=== PATIENT | male | born 1970 | race Caucasian/White ===

== ENCOUNTER 2023-12-04 20:03 | Emergency (ER) | payer OTHER ==
[~2023-12-04] VITALS: Ht 182.9 cm; Wt 99.8 kg
[2023-12-04 20:57] LABS: BASOPHILS # (AUTO) 0.08 K/uL (0.00-0.20); BASOPHILS % (AUTO) 1.5 % (0.0-5.0); EOSINOPHILS # (AUTO) 0.16 K/uL (0.00-0.70); HEMATOCRIT 47.7 % (42-54); IMMATURE GRANULOCYTE ABSOLUTE 0.01 K/uL (0-1); LYMPHOCYTES # (AUTO) 2.1 K/uL (1.0-4.8); LYMPHOCYTES % (AUTO) 40.4 % (21.0-51.0); MEAN CORPUSCULAR HEMOGLOBIN 28.7 pg (27.0-33.0); MEAN CORPUSCULAR HGB CONC 32.7 g/dL (32.0-36.0); MEAN CORPUSCULAR VOLUME 87.7 fL (79-99); MONOCYTES # (AUTO) 0.6 K/uL (0.1-1.0); MONOCYTES % (AUTO) 11.8 % (3.0-13.0); NEUTROPHILS # (AUTO) 2.3 K/uL (1.8-7.7); NEUTROPHILS % (AUTO) 43.1 % (40.0-77.0); PLATELET COUNT (AUTO) 239 K/uL (130-400); RED BLOOD CELL COUNT(AUTO) 5.44 MIL/uL (4.50-6.20); RED CELL DISTRIBUTION WIDTH 13.2 % (11.0-15.5); WHITE BLOOD COUNT (AUTO) 5.3 K/uL (4.8-10.8)
[2023-12-04 21:09] LABS: INR 0.94 (0.85-1.15); PROTHROMBIN TIME 10.2 SEC (9.6-11.6)
[2023-12-04 21:10] LABS: PARTIAL THROMBOPLASTIN TIME 23.9 SEC (26.3-35.5)
[2023-12-04 21:11] LABS: CREATININE 1.5 mg/dL (0.5-1.3); POTASSIUM 4.7 mmol/L (3.5-5.1)
[2023-12-04] MEDS ORDERED: IOHEXOL-350 75 ML VIAL IV ONE (22:00)
[2023-12-05 00:02] VITALS: BP 142/93; PULSE 58; RESP 16; TEMP 98.3; O2SAT 98
== END 2023-12-05 00:10 | disposition home or self-care (01) ==
LOC: EDH 20:03
DX: R07.89 Other chest pain (principal); R00.1 Bradycardia, unspecified; R79.1 Abnormal coagulation profile; M25.512 Pain in left shoulder; M54.6 Pain in thoracic spine; E11.9 Type 2 diabetes mellitus without complications
CPT/HCPCS: 99285; 71270; 71045; 84484; 80048; 85025; 85378; 85610; 85730; 36415; 93005; Q9967

== ENCOUNTER → 2023-12-04 | Outpatient (CLI) | payer OTHER ==
[2023-12-04 16:47] LABS: ALBUMIN 3.6 g/dL (3.5-5.0); BILIRUBIN,TOTAL 0.6 mg/dL (0.2-1.0); CREATININE 1.4 mg/dL (0.5-1.3); POTASSIUM 3.8 mmol/L (3.5-5.1); THYROID STIMULATING HORMONE 1.93 uIU/mL (0.36-3.74); TOTAL PROTEIN, SERUM 6.9 g/dL (6.0-8.3)
== END | disposition home or self-care (01) ==
LOC: LAB 13:52
PROVIDERS: ATTEND Internal Medicine Cardiovascular Disease
DX: I20.9 Angina pectoris, unspecified (principal); R00.2 Palpitations
CPT/HCPCS: 36415; 80053; 80061; 84443; 84484; 85378

== ENCOUNTER → 2023-12-16 | Outpatient (CLI) | payer OTHER | END | disposition home or self-care (01) | LOC: EDUNIT# 11:30 → SHCH 11:30 | PROVIDERS: ATTEND Internal Medicine Cardiovascular Disease | DX: R00.2 Palpitations (principal) | CPT/HCPCS: 93306; 93356 ==

== ENCOUNTER → 2023-12-22 | Outpatient (CLI) | payer OTHER ==
--- NOTE | 2023-12-24 07:17 | HMCSR ---
APPROVED REPORT Bilateral Lower Extremity Venous Study for DVT., Venous Competence.Study performed with patient in up right position or in reverse Trendelenburg. Vein Imaging CFV (R): Normal flow, augmentation and compression. No evidence of DVT, Diameter 16.7mm SFJ (R): Normal flow, augmentation and compression. No evidence of DVT. FEM (R): Normal flow, augmentation and compression. No evidence of DVT, 333 ms of DVR. POP (R): Normal flow, augmentation and compression. No evidence of DVT, 239 ms of DVR. DFV (R): Normal flow, augmentation and compression. No evidence of DVT. PTV (R): Normal flow, augmentation and compression. No evidence of DVT. Peroneals (R): Normal flow, augmentation and compression. No evidence of DVT. GAS (R): Normal flow, augmentation and compression. No evidence of DVT. CFV (L): Normal flow, augmen tation and compression. No evidence of DVT, Diameter 18.0 mm, 417 ms of DVR. SFJ (L): Normal flow, augmentation and compression. No evidence of DVT. FEM (L): Normal flow, augmentation and compression. No evidence of DV, 906 ms of DVR. POP (L): Normal flow, augmentation and compression. No evidence of DVT. DFV (L): Normal flow, augmentation and compression. No evidence of DVT. PTV (L): Normal flow, augmentation and compression. No evidence of DVT. Peroneals (L): Normal flow, augmentation and compression. No evidence of DVT. GAS (L): Normal flow, augmentation and compression. No evidence of DVT. Technologist Impression The deep veins of the bilateral lower extremities appear patent and compressible without evidence of thrombus. Deep venous reflux noted. There is evidence of significant superficial venous insufficiency in the bilateral greater saphenous veins and the left smaller saphenous vein. RGSV Junction 8.2 mm 722 ms Mid thigh 5.3 mm 0 ms Knee 5.4 mm 389 ms Mid- calf 2.7 mm 411 ms RSSV Prox 3.4 mm 0 ms Mid 2.7 mm 0 ms LGSV Junction 6.5 mm 483 ms Mid thigh 5.3 mm 344 ms Knee 4.4 mm 600 ms Mid-calf 2.8 mm 0 ms LSSV Prox 5.5 mm 0 ms Mid 2.8 mm 850 ms Conclusion Deep venous reflux noted. There is evidence of significant superficial venous insufficiency in the bilateral greater saphenous veins and the left smaller saphenous vein. Consider formal venography with IVUS if clinically indicated Conclusion Deep venous reflux noted. There is evidence of significant superficial venous insufficiency in the bilateral greater saphenous veins and the left smaller saphenous vein. Consider formal venography with IVUS if clinically indicated
== END | disposition home or self-care (01) ==
LOC: SHCH 14:19
PROVIDERS: ATTEND Internal Medicine Cardiovascular Disease
DX: I87.2 Venous insufficiency (chronic) (peripheral) (principal)
CPT/HCPCS: 93970

== ENCOUNTER → 2023-12-30 | Outpatient (CLI) | payer OTHER ==
[~2023-12-30] MED LIST: IOHEXOL 350 MG/ML 100ML INFUS..BTL IV ONE; IOHEXOL-350 50ML VIAL IV ONE
--- NOTE | 2023-12-30 16:23 | HMCIMG ---
CT CARDIAC ANGIO W/CONT. CCTA HISTORY: Chest pain COMPARISON: None TECHNIQUE: Multiple sequential axial images of the chest were obtained along with the CT angiogram of the chest study. Patient was given 100 cc of Omnipaque through intravenous route. FINDINGS: There is no evidence of pulmonary nodule or parenchymal disease. No pleural effusion or pericardial effusion is seen. There is no evidence of pneumothorax. There are normal size mediastinal and hilar lymph nodes. The heart is not enlarged. Degenerative changes of the thoracolumbar spine are present. IMPRESSION: 1. No evidence of pulmonary nodule or effusion is seen. Please see CT angiogram report of coronary arteries.
--- NOTE | 2024-01-04 11:34 | CARDIOLOGY ---
RAD REPORT: CORNARY CT ANGIO RADIOLOGY REPORT: CORONARY CT ANGIOGRAPHY DATE: Jan 04, 2024 QUALITY: Excellent CLINICAL HISTORY AND INDICATION: [chest pain ] TECHNIQUE: After obtaining a preliminary job analysis manager image, contrast imaging performed on an [employer] [id number] scanner. A dedicated, limited window, coronary imaging protocol was used, with single breath-hold, retrospective ECG gating, and automated arrhythmia rejection. 100 cc of low osmolar contrast agent: Omnipaque 350 was delivered via a 18-gauge IV catheter in the right antecubital fossa, using a power injector and followed by 60 cc of normal saline bolus as a chaser. Collimated images were reformatted at 0.5 mm intervals, and sent to an offline independent workstation for interpretation, using 3D anatomic reconstructions: Curved multiplanar reconstructions, maximum intensity projections, and multiplanar imaging. No metoprolol was administered prior to scanning due to low baseline heart rate. 0.8 mg SL nitroglycerin was given. CORONARY ARTERY DESCRIPTIONS: The coronary arteries arise in normal position. Left main coronary artery: Normal caliber vessel that bifurcates into the LAD and LCx. No stenosis. Left anterior descending coronary artery: Normal caliber vessel and gives rise to diagonal and septal branches. High risk plaque (HRP) with positive remodeling and spotty calcification in the proximal LAD with 40% stenosis extending into the mid LAD just distal to D1. Left circumflex coronary artery: Normal caliber, nondominant and gives rise to a large OM branch. No stenosis. Right coronary artery: Large, dominant vessel giving rise to the PL and PDA branches. No stenosis. CAD-RADs: 3, moderate stenosis. HRP, recommend aggressive LDL lowering therapy. Thoracic Aorta: Normal diameter. Jacqui Garrido MD Cardiovascular Disease [facility] JACQUI GARRIDO MD Jan 04, 2024 11:34
== END | disposition home or self-care (01) ==
LOC: RAH 08:48 → EDUNIT# 01-07 11:00
PROVIDERS: ATTEND Internal Medicine Cardiovascular Disease
DX: I25.119 Atherosclerotic heart disease of native coronary artery with unspecified angina pectoris (principal); M47.815 Spondylosis without myelopathy or radiculopathy, thoracolumbar region; R07.9 Chest pain, unspecified
CPT/HCPCS: 75574; Q9967 ×2

== ENCOUNTER 2024-01-27 01:15 | Observation (INO) | payer OTHER ==
[2024-01-27 01:38] LABS: BASOPHILS # (AUTO) 0.05 K/uL (0.00-0.20); BASOPHILS % (AUTO) 0.8 % (0.0-5.0); EOSINOPHILS # (AUTO) 0.15 K/uL (0.00-0.70); EOSINOPHILS % (AUTO) 2.5 % (0.0-8.0); IMMATURE GRANULOCYTE ABSOLUTE 0.02 K/uL (0-1); LYMPHOCYTES % (AUTO) 49.2 % (21.0-51.0); MEAN CORPUSCULAR HEMOGLOBIN 28.7 pg (27.0-33.0); MEAN CORPUSCULAR HGB CONC 32.8 g/dL (32.0-36.0); MEAN CORPUSCULAR VOLUME 87.5 fL (79-99); MONOCYTES # (AUTO) 0.6 K/uL (0.1-1.0); MONOCYTES % (AUTO) 10.5 % (3.0-13.0); NEUTROPHILS # (AUTO) 2.2 K/uL (1.8-7.7); NEUTROPHILS % (AUTO) 36.7 % (40.0-77.0); PLATELET COUNT (AUTO) 227 K/uL (130-400); RED BLOOD CELL COUNT(AUTO) 5.37 MIL/uL (4.50-6.20); RED CELL DISTRIBUTION WIDTH 12.7 % (11.0-15.5)
[2024-01-27 01:46] LABS: AMPHET/METH SCREEN,URINE NEGATIVE (NEGATIVE); BARBITURATE SCREEN, URINE NEGATIVE (NEGATIVE); BENZODIAZEPINES SCREEN,URINE NEGATIVE (NEGATIVE); CANNABINOID SCREEN,URINE NEGATIVE (NEGATIVE); COCAINE SCREEN,URINE NEGATIVE (NEGATIVE); OPIATE SCREEN,URINE NEGATIVE (NEGATIVE); PHENCYCLIDINE SCREEN,URINE NEGATIVE (NEGATIVE)
[2024-01-27 01:47] LABS: CARBON DIOXIDE 31 mmol/L (21-32); CHLORIDE 110 mmol/L (101-111); CREATININE 1.3 mg/dL (0.5-1.3); GLOMERULAR FILTR. RATE CALC 66 mL/min (>90); GLUCOSE,RANDOM 92 mg/dL (70-105); POTASSIUM 3.9 mmol/L (3.5-5.1); SODIUM SERUM 146 mmol/L (136-145); UREA NITROGEN, BLOOD 19 mg/dL (7-18)
[2024-01-27 01:54] LABS: CREATINE KINASE, TOTAL 122 U/L (21-232)
[2024-01-27 01:55] LABS: ALCOHOL, BLOOD < 3 mg/dL (0-10)
[2024-01-27 01:58] LABS: B-TYPE NATRIURETIC PEPTIDE 7 pg/mL (0-100)
[2024-01-27] MEDS: 0.9%NACL 1000ML 1,000 ML IV ONE (02:53)
--- NOTE | 2024-01-27 04:13 | ERN ---
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 Chief Complaint: Palpitations Time Seen by MD: 01:28 Dictation: This is a 53-year-old male who presented to the emergency room with complaints of severe palpitations 2 hours prior to presentation to the ER and chest discomfort. He stated that he was about to go to sleep when he felt like his heart was pumping so hard that he could hear the beats or feel them in the neck suprasternal notch underneath the ribcage. He could not sleep as this was going on constantly and he was concerned about probably having a heart attack and hence he came in. No diaphoresis syncopal episode. He had somewhat of a similar episode in November 30, 2023 at which time he was admitted and an echocardiogram and cardiac evaluation was done. His D-dimer is were apparently elevated and he had a CT scan of the chest with a PE protocol that was essentia lly negative he was noted to be bradycardic in November. No history of any thyroid problems. He does drink coffee but no other stimulants. Denied alcohol recreational drugs. Temperature 98.4 pulse 95 respirations 20 blood pressure 142/102 pulse oximetry 96% on room air He has a history of gout Allergies: Coded Allergies: No Known Allergies (Unverified Allergy, Unknown, 12/04/23) Past Medical History Past Medical History: No Pertinent History Additional Past Medical Hx: Gout Surgical History: Tonsillectomy Family History: Negative Social History: Negative RN Note Reviewed/Agreed w/PFSH: Yes Review of System Dictation Constitutional: Negative for fever,chills, and weight loss Eyes: Negative for injury, pain,redness, and discharge ENT: Negative for injury,pain or swelling Cardiovascular: Positive chest pain, palpitations, and no edema Respiratory: Negative for shortness of breath, cough, and wheezing, Abdomen/GI: Negative for abdominal pain, nausea, vomiting, diarrhea, and constipation Back: Negative for injury and pain : Negative for injury, bleeding and discharge MS/Extremity: Negative for injury and deformity Skin: Negative for rash, and discoloration Neuro: Negative for headache, weakness, numbness, tingling, and seizure Psych: Negative for suicide ideation, homicidal ideation, and hallucinations Initial Vital Sign VS Vital Signs Date Time Temp Pulse Resp B/P (MAP) Pulse Ox O2 Delivery O2 Flow Rate FiO2 01/27/24 01:21 98.4 95 20 142/102 96 Room Air 01/27/24 01:38 0 21 Physical Exam Dictation General: awake, alert, NAD Head/Face: Normocephalic, atraumatic Eyes: PERRL, EOMI, vision at baseline ENT: oral cavity clear, TMs clear, no signs of infection Neck: Trachea midline, supple, no nuchal rigidity Cardiovascular: RRR, normal S1/S2, No MRGs, no JVD Respiratory: CTAB, no respiratory distress, No rales or wheezes Abdomen: Soft, non-tender, non-distended, normal bowel sounds, no guarding or rebound. Skin: Warm, dry, normal turgor, no rash MS/Extremity: Pulses equal, no cyanosis, neurovascular intact, FROM Neuro: COAx4, GCS 15, strength 5/5, CN 2-12 intact, normal cerebellar exam, normal gait, Psych: Normal behavior, mood, and affect normal Extremities-trace edema without any palpable cords, Homans sign is negative Results (Laboratory/Radiology) Laboratory/Radiology Laboratory Tests Test 01/27/24 01:30 White Blood Count 6.0 K/uL (4.8-10.8) Red Blood Count 5.37 MIL/uL (4.50-6.20) Hemoglobin 15.4 g/dL (14.0-18.0) Hematocrit 47.0 % (42-54) Mean Corpuscular Volume 87.5 fL (79-99) Mean Corpuscular Hemoglobin 28.7 pg (27.0-33.0) Mean Corpuscular Hemoglobin Concent 32.8 g/dL (32.0-36.0) Red Cell Distribution Width 12.7 % (11.0-15.5) Platelet Count 227 K/uL (130-400) Mean Platelet Volume 10.8 fL (7.5-10.5) H Immature Granulocyte % (Auto) 0.3 % (0-1) Neutrophils (%) (Auto) 36.7 % (40.0-77.0) L Lymphocytes (%) (Auto) 49.2 % (21.0-51.0) Monocytes (%) (Auto) 10.5 % (3.0-13.0) Eosinophils (%) (Auto) 2.5 % (0.0-8.0) Basophils (%) (Auto) 0.8 % (0.0-5.0) Neutrophils # (Auto) 2.2 K/uL (1.8-7.7) Lymphocytes # (Auto) 3.0 K/uL (1.0-4.8) Monocytes # (Auto) 0.6 K/uL (0.1-1.0) Eosinophils # (Auto) 0.15 K/uL (0.00-0.70) Basophils # (Auto) 0.05 K/uL (0.00-0.20) Absolute Immature Granulocyte (auto 0.02 K/uL (0-1) Nucleated Red Blood Cells 0.0 % (0.0-0.19) Sodium Level 146 mmol/L (136-145) H Potassium Level 3.9 mmol/L (3.5-5.1) Chloride Level 110 mmol/L (101-111) Carbon Dioxide Level 31 mmol/L (21-32) Blood Urea Nitrogen 19 mg/dL (7-18) H Creatinine 1.3 mg/dL (0.5-1.3) Glomerular Filtration Rate Calc 66 mL/min (>90) Random Glucose 92 mg/dL (70-105) Total Calcium 8.9 mg/dL (8.5-10.1) Total Creatine Kinase 122 U/L (21-232) Troponin I High Sensitivity 5.1 ng/L (4-75) B-Type Natriuretic Peptide 7 pg/mL (0-100) Thyroid Stimulating Hormone (TSH) 3.85 uIU/mL (0.36-3.74) #H Urine Opiates Screen NEGATIVE (NEGATIVE) Urine Barbiturates Screen NEGATIVE (NEGATIVE) Urine Phencyclidine Screen NEGATIVE (NEGATIVE) Urine Amphetamines Screen NEGATIVE (NEGATIVE) Urine Benzodiazepines Screen NEGATIVE (NEGATIVE) Urine Cocaine Screen NEGATIVE (NEGATIVE) Urine Marijuana (THC) Screen NEGATIVE (NEGATIVE) Serum Alcohol < 3 mg/dL (0-10) Labs Reviewed?: Yes ED Course ED Course Orders Procedure Category Date Status Time 12 Lead Ekg Tracing- EKG 01/27/24 Logged Technical 01:20 Alcohol, Blood LAB 01/27/24 Complete 01: Cardiac Panel LAB 01/27/24 Complete 01:31 Cbc With Differential LAB 01/27/24 Complete : Basic Metabolic Panel LAB 01/27/24 Complete 01: B-Type Natriuretic LAB 01/27/24 Complete Peptide 01:31 Drug Screen Urine LAB 01/27/24 Complete 01:31 Thyroid Stimulating LAB 01/27/24 Complete Hormone 02:04 0.9%Nacl 1000ml (Ns PHA 01/27/24 In Process 1000ml) 03:00 Alprazolam 0.5mg PHA 01/27/24 In Process (Xanax 0.5mg) 05:00 Edm Admit Bridge Order ADM 01/27/24 Verified 04:43 Admit Orders ADM 01/27/24 Verified 04:43 Current Medications Medications (Trade) Dose Ordered Sig/Daysi Route PRN Reason Start Time Stop Time Status Last Admin Dose Admin Alprazolam (XANax 0.5MG) 0.5 mg ONCE ONCE PO 01/27/24 05:00 01/27/24 05:01 Sodium Chloride 1,000 ml @ 125 mls/hr ONCE ONCE IV 01/27/24 03:00 01/27/24 10:59 01/27/24 02:53 Vital Signs Date Time Temp Pulse Resp B/P (MAP) Pulse Ox O2 Delivery O2 Flow Rate FiO2 01/27/24 01:38 98.2 75 18 116/65 99 Room Air* 0 21 01/27/24 01:21 98.4 95 20 142/102 96 Room Air We will perform diagnostic labs, advanced imaging and administer medications according to the patient's complaint. Once the results are available, will review and personally interpreted the labs to rule out any acute life- threatening emergency the trach require immediate intervention and treatment. I will then re-evaluate the patient after treatment and diagnostic exams have return to determine whether the patient requires any further testing, can safely be discharged home or need further admission to hospital for additional treatment and evaluation. Labs reviewed CBC within normal limits BNP 7 significant for hypernatremia sodium 146 chloride 110 bicarb 31 BUN and creatinine are 19 and 1.3 with a glucose of 92 TSH 3.8 urine tox screen negative I discussed extensively with the patient on available information unremarkable EKG for any acute event and he was extremely concerned about this hyperdynamic heart fluttering feeling. I explained to him that with a dehydration, we will pursue some fluids and consider admission for cardiac re-evaluation and perhaps considering either a loop recorder or whatever is deemed appropriate by cardiology team. He stated that he lives by himself and is very concerned about not knowing what the problem is in his very appreciative of all the workup and efforts. 4:51 a.m. patient was accepted by hospitalist group mid-level provider marco a for admission and further cardiac evaluation HEART Score Response (Comments) Value History: Low suspicion (0) 0 EKG: Normal 0 Age: 45-65yrs (+1) 1 Risk Factors: No known risk factors (0) 0 Initial Troponin: Normal limit (0) 0 HEART Score Risk: Low Risk for MACE (1-3) Total 1 Medical Decision Making MDM MDM: Differential diagnosis: Palpitations-hyperdynamic heart possibly arrhythmia, sick sinus syndrome, mitral valve prolapse Rationale: Tests considered and ordered secondary to shared decision making include: labs, ECG and radiology Previous outside records reviewed: Old ER visits. Risk of complication and/or morbidity or mortality of patient management: None Medications-Per medication reconciliation Need for hospitalization: Patient does meet criteria for hospitalization. Need for emergency major/minor surgery: No There are no social concerns with this patient. Prescription drug management Prescriptions will include symptomatic care Patient's prior external medical records from other ER visits were reviewed by me as indicated. Prior testing and results from previous visits were reviewed. Prior tests were taken into account with medical decision making and resource utilization, independent historian/historians were used to obtain complete medical history. I independently interpreted the test that were performed, results were reviewed by me and considered findings on radiology if ordered. Medical management and examination interpretation discussions were had by me with other qualified healthcare professionals as indicated for the patient's care. Problem List Problem List: (1) Hypernatremia (2) Acute kidney injury (3) Palpitations (4) Chest pain of unknown etiology DX & DISP Disposition: Inpatient Decision to Admit Time: 04:53 Departure Impression: Primary Impression: Palpitations Additional Impressions: Chest pain of unknown etiology, Hypernatremia, Acute kidney injury Condition: Stable Additional Instructions: Patient was informed of all the diagnostic labs and procedures conducted in the emergency room today and demonstrated understanding of the results. I personally reviewed and interpreted all the diagnostic exams performed in the ER today. The patient will be admitted to the hospital for further treatment and evaluation. Disposition-admit to facility Condition-stable/guarded Course-uncertain at this time Pain status-decreased Assessment-exam unchanged Admission Certification- I certify that the patients status is appropriate and is based on my best clinical judgment and the patient's condition as documented in the medical records Referrals: SELF,REFERRAL (PCP) GIUSEPPE DWYER MD Jan 27, 2024 04:13
[2024-01-27] MEDS: ALPRAZolam 0.5 MG TABLET PO ONE (05:00)
[2024-01-27] MEDS ORDERED: ALLO100T PO (05:13)
[2024-01-27] MEDS ORDERED: ATOR40TA69 PO (05:13)
[2024-01-27] MEDS: 0.9%NACL 1000ML 1,000 ML IV SCH (05:59)
--- NOTE | 2024-01-27 05:59 | HP ---
[facility] HISTORY AND PHYSICAL Date of Service: Jan 27, 2024 Time of Service: 05:12 PCP: YOLY varma HISTORY OF PRESENT ILLNESS: This is a 53 year old male with past medical history of hyperlipidemia who presents tot he ED ofr complaints of palpitation associated with chest discomfort onset 2 hrs prior to ER srrival.Patient reports he feels the palpitation while lying down ,he feels like his heart is about to jump out of his chest and the palpitation can be felt from his left side of neck up to his left chest and towards the left ribcage , he said he is unable to sleep because of this and this has been on going since . and he said he was seen here before and was noted to be bradycardic .Patient had an echocardiogram done and was referred to a still runner who checked him for PE and DVT and it was all negative he said but he is concerned how come he feels this way.Patient also states he feels dizzy on and off especially when he changes his position from lying down to getting out of bed.Patient reports he used to be in a and now he works as a computer technology trainer.He drinks 2 cups of dark coffee/daily.Patient denies any recent stress event in life.Patient states 2 days ago he had a midsternal chest pain and went away on its own.Patient states he is concerned that he is having a heart attack. Seen and examined patient in the ER awake,alert and coherent,continue to complain of palpitation.Patient denies nausea,vomiting ,syncope and shortness of breath. Latest vital signs temperature 98.1, heart rate 82, BP 122/62 and saturation 97% on room air. Labs: CBC unremarkable. Sodium 146, BUN 19, TSH 3.85, BNP 7. Urine toxicology negative. ECG result revealed sinus rhythm heart rate 75. While in the ER patient received Xanax 0.5 mg p.o. and started on NS at 125 mL/hour. ER called to admit the patient. REVIEW OF SYSTEMS CONSTITUTIONAL: Denies fevers, chills, or night sweats. No unintentional weight loss reported. NEUROLOGICAL: Denies headache, amaurosis fugax, motor weakness, sensory deficit, vertigo/spinning sensation, gait abnormalities, or tremors. ENT: No hearing loss, otalgia, otorrhea, rhinitis, rhinorrhea, hoarseness, or sore throat. CARDIOVASCULAR: Complained of palpitation and chest discomfort Denies dyspnea on exertion, orthopnea, paroxysmal nocturnal dyspnea, palpitations, life- threatening arrhythmias, claudication. PULMONARY: Denies any shortness of breath, cough, phlegm/sputum, hemoptysis, pleuritic chest pain. SLEEP: Denies morning headaches, daytime somnolence or napping. Denies difficulty falling asleep, staying asleep, waking from sleep. Denies knowledge of snoring. GASTROINTESTINAL: Denies any type of dysphagia to either liquids or solids. Denies nausea, vomiting, pyrosis, early satiety, abdominal pain, diarrhea, constipation, or changes in stool consistency or caliber. Denies coffee-ground emesis, hematemesis, hematochezia, or melanotic stools. GENITOURINARY: Denies frequency, urgency, nocturia, hematuria or incontinence (Storage/Irritative symptoms.) Low urinary stream, straining to void, urinary intermittency or hesitancy, splitting of the voiding stream, terminal dribbling. ENDOCRINOLOGIC: Denies polyuria, polydipsia, polyphagia or heat/cold intolerances. HEMATOLOGIC: Denies thrombophilia/previous clots, or coagulopathy/bleeding disorders. ONCOLOGIC: Denies personal history of malignancy. DERMATOLOGIC: Denies rashes or pruritus. PSYCHIATRIC: Denies any suicidal or homicidal ideation. Denies hallucinations. PAST MEDICAL HISTORY: [Hyperlipidemia ] PAST SURGICAL HISTORY: [ Tonsillectomy hernia repair, cyst removal of the right breast ] PAST SOCIAL HISTORY: [ Patient lives alone. Patient denies alcohol tobacco and recreational drug use] FAMILY HISTORY: [ Heart disease ] Coded Allergies: No Known Allergies (Unverified Allergy, Unknown, 12/04/23) PHYSICAL EXAM GENERAL APPEARANCE: The patient is awake, alert, and oriented, in no acute cardiopulmonary distress. NEUROLOGICAL: Cranial nerves II-XII grossly intact. Motor is 5/5 in bilateral upper and lower extremities proximal to distal. No sensory deficits. HEENT: Face is symmetric. Pupils are equal and reactive. Extraocular movements are intact. NECK: Supple. No JVD. No thyromegaly. No submental, submandibular, pre- /postauricular, occipital or supraclavicular lymphadenopathy. CHEST: Normal chest expansion. No Telemetry. LUNGS: Absence of any rales, rhonchi or any wheezing. CARDIOVASCULAR: Regular. S1 and S2 normal. No appreciable rubs, murmurs or gallops. ABDOMEN: Soft, nontender, and nondistended. There is no rebound, voluntary guarding, or rigidity. : Deferred. No Roque. EXTREMITIES: Non-edematous and not cyanotic. No clubbing. Good capillary refill. SKIN: No skin breakdown. Vital Sign (Last 24 Hours) 01/27/24 01:38 Temp 98.2 Pulse 75 Resp 18 B/P (MAP) 116/65 Pulse Ox 99 O2 Delivery Room Air* O2 Flow Rate 0 FiO2 21 LABS: Laboratory: Test 01/27/24 01:30 Range/Units White Blood Count 6.0 4.8-10.8 K/uL Red Blood Count 5.37 4.50-6.20 MIL/uL Hemoglobin 15.4 14.0-18.0 g/dL Hematocrit 47.0 42-54 % Mean Corpuscular Volume 87.5 79-99 fL Mean Corpuscular Hemoglobin 28.7 27.0-33.0 pg Mean Corpuscular Hemoglobin Concent 32.8 32.0-36.0 g/dL Red Cell Distribution Width 12.7 11.0-15.5 % Platelet Count 227 130-400 K/uL Mean Platelet Volume 10.8 H 7.5-10.5 fL Immature Granulocyte % (Auto) 0.3 0-1 % Neutrophils (%) (Auto) 36.7 L 40.0-77.0 % Lymphocytes (%) (Auto) 49.2 21.0-51.0 % Monocytes (%) (Auto) 10.5 3.0-13.0 % Eosinophils (%) (Auto) 2.5 0.0-8.0 % Basophils (%) (Auto) 0.8 0.0-5.0 % Neutrophils # (Auto) 2.2 1.8-7.7 K/uL Lymphocytes # (Auto) 3.0 1.0-4.8 K/uL Monocytes # (Auto) 0.6 0.1-1.0 K/uL Eosinophils # (Auto) 0.15 0.00-0.70 K/uL Basophils # (Auto) 0.05 0.00-0.20 K/uL Absolute Immature Granulocyte (auto 0.02 0-1 K/uL Nucleated Red Blood Cells 0.0 0.0-0.19 % Sodium Level 146 H 136-145 mmol/L Potassium Level 3.9 3.5-5.1 mmol/L Chloride Level 110 101-111 mmol/L Carbon Dioxide Level 31 21-32 mmol/L Blood Urea Nitrogen 19 H 7-18 mg/dL Creatinine 1.3 0.5-1.3 mg/dL Glomerular Filtration Rate Calc 66 >90 mL/min Random Glucose 92 70-105 mg/dL Total Calcium 8.9 8.5-10.1 mg/dL Total Creatine Kinase 122 21-232 U/L Troponin I High Sensitivity 5.1 4-75 ng/L B-Type Natriuretic Peptide 7 0-100 pg/mL Thyroid Stimulating Hormone (TSH) 3.85 #H 0.36-3.74 uIU/mL Urine Opiates Screen NEGATIVE NEGATIVE Urine Barbiturates Screen NEGATIVE NEGATIVE Urine Phencyclidine Screen NEGATIVE NEGATIVE Urine Amphetamines Screen NEGATIVE NEGATIVE Urine Benzodiazepines Screen NEGATIVE NEGATIVE Urine Cocaine Screen NEGATIVE NEGATIVE Urine Marijuana (THC) Screen NEGATIVE NEGATIVE Serum Alcohol < 3 0-10 mg/dL DIAGNOSTICS / RADIOLOGY: [ ASSESSMENT: Persistent palpitation POA Chest pain unspecified POA New onset hypothyroidism POA Hypernatremia POA Stage II renal disease POA PLAN: We will admit patient in medical telemetry We will start on heart healthy diet We will start NS @ 100 ml / hr x1 bag and re evaluate We will start patient on Lovenox 30 mg subQ and bilateral SCD for DVT prophylaxis We will start on Famotidine 20 mg bid for GI prophylaxis We will replace electrolytes as needed per protocol We will trend troponin q.6 x3 We will seek Cardiology consultation We will seek endocrinology consultation We will check labs in a.m. Further recommendations to follow depending upon hospitalization course Case discussed with the attending MD and came up with the above treatment and plan of care ADVANCED CARE PLANNING 1. Which of the following were discussed? Hospice Care - No Therapeutic options - Yes Advance Directives - No Other discussions - 2. Discussed with who? Patient 3. Voluntary nature of this service was explained to the patient? Yes 4. Amount of time spent - ___20____ 5. Reviewed by Physician? (if this service was performed by NPP) Yes Patient seen and examined by me. Agree with note by MANAGER NIGHT SEE ADDITIONAL ORDERS PER CHART DISCUSSED WITH NURSING STAFF ERINN DILL [facility] Jan 27, 2024 05:59
[2024-01-27] MEDS ORDERED: PoTASSium chl 10% ELIXIR 20MEQ 20 MEQ/15 ML UDCUP PO PRN (06:00)
[2024-01-27] MEDS ORDERED: ondanSETRON 4MG INJ IV PRN (06:00)
[2024-01-27] MEDS ORDERED: PoTASSium chloRIDE 20MEQ ER 20 MEQ ERTAB PO PRN (06:00)
[2024-01-27] MEDS ORDERED: MAGNESIUM 2GM PREMIX 50ML 50 ML IV PRN (06:00)
[2024-01-27] MEDS ORDERED: PoTASSium chloRIDE 20MEQ/100ML 100 ML IV PRN (06:00)
[2024-01-27] MEDS ORDERED: acetaMINOPHEN 325 MG TAB PO PRN ×2 (06:00)
--- NOTE | 2024-01-27 06:33 | EKG ---
[facility] Test Date: 2024-01-27 Test Time: 01:22:38 Pat Name: GRISELDA STEWARD Department: EDHIP Room: ED 09 Gender: M Technology Architect: [id number] : 1970 Requested By: GIUSEPPE DWYER Order Number: [id number] Reading MD: Flakito Kaba Measurements Intervals [place] Rate: 75 P: 52 SC: 189 QRS: -39 QRSD: 96 T: 39 QT: 373 QTc: 416 Interpretive Statements Sinus rhythm Left axis deviation Compared to ECG 12/04/2023 20:59:16 No significant changes Electronically Signed On 01-27-2024 20:54:37 GUEST EXPERIENCE REPRESENTATIVE by Flakito Kaba Please click the below link to view image of tracing.
[2024-01-27] MEDS: ENOXAPARIN SODIUM 30 MG/0.3 ML SQ SCH (08:41)
[2024-01-27] MEDS: FAMOTIDINE 20MG TAB PO SCH (08:41)
[2024-01-27 09:54] LABS: CHOLESTEROL 115 mg/dL (<200); HDL CHOLESTEROL 41 mg/dL (29-71); LDL DIRECT 65 mg/dL (0-99); TRIGLYCERIDES 88 mg/dL (30-200)
[2024-01-27] MEDS: ASPIRIN 81 MG EC TAB PO SCH (09:55)
--- NOTE | 2024-01-27 11:44 | HMCIMG ---
US CAROTID DUPLEX HISTORY: Dizziness COMPARISON: None TECHNIQUE: Duplex carotid arterial Doppler ultrasound study was performed. FINDINGS: The common, internal and external carotid arteries are visualized. The peak systolic velocities of right common carotid artery is 89 centimeters per second, right internal carotid artery is 60 centimeters per second, right external carotid artery is 95 centimeters per second, and right vertebral artery is 35 centimeters per second. Right internal carotid artery to right common carotid artery ratio is 0.7. Right vertebral artery is seen with antegrade flow. The peak systolic velocities of left common carotid artery is 83 centimeters per second, left internal carotid artery is 61 centimeters per second, left external carotid artery is 69 centimeters per second, and left vertebral artery is 57 centimeters per second. Left internal carotid artery to left common carotid artery ratio is 0.7. Left vertebral artery is seen with antegrade flow. There are bilateral echogenic plaques. IMPRESSION: 1. No hemodynamically significant lesion is seen of either extracranial carotid artery system.
--- NOTE | 2024-01-27 13:31 | CONS ---
[facility] CARDIOLOGY CONSULTATION REPORT Cardiology consultation note dictated for Jose Ram MD Primary civil process server: Adal Kelley MD Date Patient Seen: Jan 27, 2024 Requesting Physician: SAVITA Magaña Reason for Consultation: Persistent palpitations History of Present Illness: This is a 53-year-old male with a past medical history of palpitations, normal Lexiscan in 05/01/2022, 2D Echo on 12/16/2023 with an LVEF of 55-60% and normal LV segmental wall motion, CCTA on 01/04/2024 demonstrated high risk plaque (HRP) with positive remodeling and spotty calcification in the proximal LAD with 40% stenosis extending into the mid LAD just distal to D1, with recommendations for aggressive LDL lowering therapy, BLE venous Doppler on 12/22/2023 demonstrating venous insufficiency in the bilateral greater saphenous veins and the left smaller saphenous vein, gout, and obesity who presented to the ED with complaints of palpitations and chest discomfort. Cardiology have been consulted for persistent palpitations. The patient states he was in bed but could not sleep due to 2 hours of palpitations before he sought medical treatment. Over all, his palpitations lasted 3-5 hours. Associated symptoms include dizziness, diaphoresis, and shortness of breath. He does admit to approximately 2 cups of coffee 3 to 4 times a week and 2 cups of black tea daily. He currently denies chest pain, dizziness, shortness of breath, nausea, or vomiting. He does admit to current palpitations, but bedside telemetry demonstrates normal sinus rhythm with heart rate in the 60s, no premature atrial or ventricular beats noted. Holter report from 12/19/2023-12/21/2023 demonstrating NSR with an average heart rate of 75 bpm, minimum heart rate of 44bpm and maximum heart rate of 161bpm. There was no significant pause and no significant AV block documented. PAC burden of less than 1% and PVC burden of 0%. Normal bilateral carotid doppler on 01/27/2024. Past Medical History: As per HPI and summarized below Past Surgical History: Cyst removed from right breast Tonsillectomy Hernia repair at 2-week-old Family History: The patient's father had a heart valve replacement and hyperlipidemia. Social History: The patient lives alone. Habits: The patient denies alcohol, tobacco, or illicit drug use. Home Meds: Allopurinol 200 mg daily Atorvastatin 40 mg q.h.s. Current Meds: Current Medications Medications Dose Ordered Sig/Daysi Start Time Stop Time Status Last Admin Acetaminophen 650 mg Q6H PRN 01/27/24 06:00 02/26/24 05:59 Acetaminophen 650 mg Q4H PRN 01/27/24 06:00 02/26/24 05:59 Ondansetron HCl 4 mg Q6H PRN 01/27/24 06:00 02/26/24 05:59 Famotidine 20 mg BID 01/27/24 09:00 02/26/24 08:59 01/27/24 08:41 Enoxaparin Sodium 30 mg DAILY 01/27/24 09:00 02/26/24 08:59 01/27/24 08:41 Sodium Chloride 1,000 ml @ 100 mls/hr Q10H 01/27/24 06:00 02/26/24 05:59 01/27/24 05:59 Potassium Chloride 100 ml @ 100 mls/hr AD PRN 01/27/24 06:00 02/26/24 05:59 Potassium Chloride 20 meq AD PRN 01/27/24 06:00 02/26/24 05:59 Potassium Chloride 20 meq AD PRN 01/27/24 06:00 02/26/24 05:59 Magnesium Sulfate 50 ml @ 0 mls/hr PROTOCOL PRN 01/27/24 06:00 02/26/24 05:59 Aspirin 81 mg DAILY 01/27/24 09:30 02/26/24 09:29 01/27/24 09:55 Allopurinol 200 mg AM 01/28/24 09:00 02/27/24 08:59 Atorvastatin Calcium 40 mg HS 01/27/24 21:00 02/26/24 20:59 Review of Systems: CONST: No fever, fatigue, or weight changes. EYES: No recent vision problems. ENT: No congestion, ear pain, or sore throat. C/V: No chest pain or edema. Admits to palpitations RESP: No cough, congestion, wheezing or shortness of breath. GI: No abdominal pain, nausea, vomiting, constipation, or diarrhea. : No incontinence or dysuria. SKIN: No rash. NEURO: No headache, focal numbness or weakness, dizziness, or seizures. PSYCH: No depression or anxiety. HEME: No abnormal bruising or bleeding. LYMPH: No swollen glands. Physical Examination: GENERAL: No acute distress. HEAD: Normal with no signs of head trauma. EYES: PERRLA, EOMI, conjunctiva and sclera normal. ENT: Hearing grossly intact, normal oropharynx. NECK: Supple without JVD. There is no tenderness, lymphadenopathy, or masses. No thyromegaly. Normal carotid upstrokes without bruits. LUNGS: Clear breath sounds bilaterally. No wheezes, or rhonchi. HEART: Normal rate and rhythm. Normal S1 and S2 without murmurs, gallop or rub. VASC: Peripheral pulses +2 bilaterally. ABD: Bowel sounds normal, soft, nontender, no masses, no organomegaly. No audible bruits. : Not examined LYMPH: No lymphadenopathy noted. EXT: No clubbing, cyanosis or edema. SKIN: No rashes or lesions noted. NEURO: Awake, alert, and oriented x3. No focal sensory or strength deficits noted. Vital Signs (last 8hr) Date Time Temp Pulse Resp B/P (MAP) Pulse Ox O2 Delivery O2 Flow Rate FiO2 01/27/24 11:52 98.1 75 18 103/61 99 Room Air* 0 21 01/27/24 07:35 98.1 54 18 115/81 99 Room Air* 0 21 01/27/24 05:13 98.1 82 18 122/62 97 Room Air* 0 21 Laboratory: Hematology Labs: Test 01/27/24 01:30 Range/Units White Blood Count 6.0 4.8-10.8 K/uL Red Blood Count 5.37 4.50-6.20 MIL/uL Hemoglobin 15.4 14.0-18.0 g/dL Hematocrit 47.0 42-54 % Mean Corpuscular Volume 87.5 79-99 fL Mean Corpuscular Hemoglobin 28.7 27.0-33.0 pg Mean Corpuscular Hemoglobin Concent 32.8 32.0-36.0 g/dL Red Cell Distribution Width 12.7 11.0-15.5 % Platelet Count 227 130-400 K/uL Mean Platelet Volume 10.8 H 7.5-10.5 fL Immature Granulocyte % (Auto) 0.3 0-1 % Neutrophils (%) (Auto) 36.7 L 40.0-77.0 % Lymphocytes (%) (Auto) 49.2 21.0-51.0 % Monocytes (%) (Auto) 10.5 3.0-13.0 % Eosinophils (%) (Auto) 2.5 0.0-8.0 % Basophils (%) (Auto) 0.8 0.0-5.0 % Neutrophils # (Auto) 2.2 1.8-7.7 K/uL Lymphocytes # (Auto) 3.0 1.0-4.8 K/uL Monocytes # (Auto) 0.6 0.1-1.0 K/uL Eosinophils # (Auto) 0.15 0.00-0.70 K/uL Basophils # (Auto) 0.05 0.00-0.20 K/uL Absolute Immature Granulocyte (auto 0.02 0-1 K/uL Nucleated Red Blood Cells 0.0 0.0-0.19 % Chemistry Labs: Test 01/27/24 12:39 01/27/24 07:24 01/27/24 01:30 Range/Units Troponin I High Sensitivity 5 4-75 ng/L Triglycerides Level 88 30-200 mg/dL Cholesterol Level 115 # <200 mg/dL LDL Cholesterol 65 0-99 mg/dL HDL Cholesterol 41 29-71 mg/dL Free Thyroxine (T4) Direct 1.01 0.76-1.46 ng/dL Free Triiodothyronine (T3) pg/mL 2.74 2.18-3.98 pg/mL Sodium Level 146 H 136-145 mmol/L Potassium Level 3.9 3.5-5.1 mmol/L Chloride Level 110 101-111 mmol/L Carbon Dioxide Level 31 21-32 mmol/L Blood Urea Nitrogen 19 H 7-18 mg/dL Creatinine 1.3 0.5-1.3 mg/dL Glomerular Filtration Rate Calc 66 >90 mL/min Random Glucose 92 70-105 mg/dL Total Calcium 8.9 8.5-10.1 mg/dL Total Creatine Kinase 122 21-232 U/L B-Type Natriuretic Peptide 7 0-100 pg/mL Thyroid Stimulating Hormone (TSH) 3.85 #H 0.36-3.74 uIU/mL Coagulation Labs: Test 01/27/24 07:24 Range/Units D-Dimer Quantitative (PE/DVT) 257 0-500 ng/mL Diagnostics / Radiology: Impression and Plan: Palpitations Normal Lexiscan in 05/01/2022 2D Echo on 12/16/2023 with an LVEF of 55-60% and normal LV segmental wall motion CCTA on 01/04/2024 demonstrated high risk plaque (HRP) with positive remodeling and spotty calcification in the proximal LAD with 40% stenosis extending into the mid LAD just distal to D1, with recommendations for aggressive LDL lowering therapy BLE venous Doppler on 12/22/2023 demonstrating venous insufficiency in the bilateral greater saphenous veins and the left smaller saphenous vein Gout Obesity Palpitations Bedside telemetry demonstrating NSR, no PACs or PVCs, heart rate in the 60s Holter report from 12/19/2023-12/21/2023 demonstrating NSR with an average heart rate of 75 bpm, minimum heart rate of 44bpm and maximum heart rate of 161bpm. There was no significant pause and no significant AV block documented. PAC burden of less than 1% and PVC burden of 0%. The Holter report revealed that the patient was experiencing symptoms when in a normal sinus rhythm. The sensation he is experiencing is not of cardiac origin. Keep follow-up appointment on 02/02/[address] Adal Kelley, the patient may be discharged home ATTESTATION BY PHYSICIAN I have seen and examined the patient, reviewed the above documentation, participated in medical decision making, made necessary modifications, and agree with the treatment plan as documented by my mid-level provider above. On review of mobile telemetry record from our office, it is observed that the patient had sinus tachycardia with no symptoms but had many recordings of symptoms during normal sinus rhythm at rates of 63-86 per minute. There did not appear to be any pathology associated with any of his symptoms, and he says these were similar symptoms to those he presented with today. My recommendation is to discharge the patient with follow-up by Dr. Kelley, his primary civil process server. MD DASH Abarca [facility] Jan 27, 2024 13:31 JOSE RAM MD Jan 27, 2024 20:02
--- NOTE | 2024-01-27 15:42 | DS ---
Discharge Summary Hospital Course Summary: The patient admitted to the hospital with the following history of the present illness: This is a 53 year old male with past medical history of hyperlipidemia who prese nted to he ED complaining of palpitation associated with chest discomfort onset 2 hrs prior to ER arrival. Seen and examined patient in the ER awake,alert and coherent. Patient denied nausea,vomiting ,syncope and shortness of breath. In the ER Latest vital signs temperature 98.1, heart rate 82, BP 122/62 and saturation 97% on room air. In the ER Labs: CBC unremarkable. Sodium 146, BUN 19, TSH 3.85, BNP 7. Urine toxicology negative. ECG result revealed sinus rhythm heart rate 75. While in the ER patient received Xanax 0.5 mg p.o. and started on NS at 125 mL/hour. Decision made to admit the patient for further evaluation and medical management. Troponins has been negative, telemetry no episodes of arrhythmias. Carotid ultrasound no hemodynamically significant lesion of either extracranial carotid artery system. Patient evaluated by ground worker. Bedside telemetry demonstrating normal sinus rhythm,no PACs or PVCs, heart rate in the 60s. Holter report from 12/19/2023-12/21/2023 demonstrating NSR with an average heart rate of 75 bpm, minimum heart rate of 44bpm and maximum heart rate of 161bpm. There was no significant pause and no significant AV block documented. PAC burden of less than 1% and PVC burden of 0%. The Holter report revealed that the patient was experiencing symptoms when in a normal sinus rhythm. The sensation he is experiencing is not of cardiac origin. Keep follow-up appointment on 02/02/[address] Adal Kelley, the patient may be discharged home. Patient to be discharged home today, to follow up with primary care physician, and ground worker as an outpatient. The patient with the elevated TSH and normal thyroid function, possible subclinical hypothyroidism is a possibility, discussed with the patient. He may benefit from follow up appointment with the lube man as an outpatient. Assessment/Plan: Final diagnosis Persistent palpitation POA Chest pain unspecified POA New onset hypothyroidism POA Hypernatremia POA Stage II renal disease POA Discharge Instructions: Patient to follow up with primary care physician and ground worker as an outpatient. Patient also with a elevated TSH and normal thyroid panel, possible subclinical hypothyroidism, however this would not explain the palpitations, explained to him that he may benefit from follow up as an outpatient with an lube man. We will provide the information so he can follow up. Patient also advised to return to the hospital if his condition changes. Patient agreed with the plan and understood the information provided. Home Medications: Reported Medications Atorvastatin Calcium (LIPITOR) 40 Mg Tablet, 40 MG PO HS, TAB 01/27/24 Allopurinol (Allopurinol) 100 Mg Tablet, 200 MG PO AM, TAB 01/27/24 Time spent arranging discharge: 31-60 minutes JONNY MULLEN MD Jan 27, 2024 15:42
[2024-01-27 15:57] VITALS: BP 119/77; PULSE 74; RESP 18; TEMP 98.1; O2SAT 95
[2024-01-27] MEDS ORDERED: atorVAStatin 40 MG TABLET PO SCH (21:00)
[2024-01-28] MEDS ORDERED: alloPURInol 100 MG TABLET PO SCH (09:00)
== END 2024-01-27 16:45 | disposition home or self-care (01) ==
LOC: EDH 01:15 → INTOOBSV 04:43 → EDHIP 04:43
PROVIDERS: ADMIT Internal Medicine; ATTEND Internal Medicine
DX: R00.2 Palpitations (principal); R07.89 Other chest pain; R42 Dizziness and giddiness; E87.0 Hyperosmolality and hypernatremia; E03.9 Hypothyroidism, unspecified; N17.9 Acute kidney failure, unspecified; R60.0 Localized edema; N18.2 Chronic kidney disease, stage 2 (mild); E78.5 Hyperlipidemia, unspecified; M10.9 Gout, unspecified; I65.21 Occlusion and stenosis of right carotid artery; Z79.899 Other long term (current) drug therapy; Z90.89 Acquired absence of other organs
CPT/HCPCS: 99285; 93880; 96360; 96361; 80061; 84443; 82550; 84484 ×3; 80048; 83880; 80305; 85025; 85378; 84439; 84481; 36415; 93005; 96372; G0378; J1650

== ENCOUNTER 2024-05-16 19:15 | Observation (INO) | payer OTHER ==
[~2024-05-16] VITALS: Ht 188 cm; Wt 106.3 kg
[~2024-05-16 19:15] MED LIST changes: +ALLO100T PO; +ATOR40TA69 PO; -IOHEXOL 350 MG/ML 100ML INFUS..BTL IV ONE; -IOHEXOL-350 50ML VIAL IV ONE
--- NOTE | 2024-05-16 19:31 | EKG ---
[facility] Test Date: 2024-05-16 Test Time: 19:30:21 Pat Name: GRISELDA STEWARD Department: [facility] Room: 405 Gender: M Relationship Executive: [id number] : 1970 Requested By: GIUSEPPE DWYER Order Number: [id number] Reading MD: Bailey Mares Measurements Intervals [place] Rate: 47 P: 23 RI: 161 QRS: -21 QRSD: 120 T: 5 QT: 472 QTc: 397 Interpretive Statements Sinus bradycardia Atrial premature complexes in couplets Nonspecific intraventricular conduction delay Compared to ECG 01/27/2024 01:22:38 Atrial premature complex(es) now present Intraventricular conduction delay now present Sinus rhythm no longer present Left-axis deviation no longer present Electronically Signed On 05-17-2024 12:27:10 CDT by Bailey Mares Please click the below link to view image of tracing.
--- NOTE | 2024-05-16 19:33 | ERN ---
ED Note History of Present Illness Stated Complaint: EPIGASTRIC PAIN, SOB, DIZZIESS Chief Complaint: Multiple Complaints Time Seen by MD: 19:24 Dictation: This is a 53-year-old male who presented to the emergency room complaining of severe epigastric pain that started in the afternoon around 3 -3:30 p.m. he stated that he went to [employer] today and ate a burger around 2 p.m. and 30- 40 minutes later began experiencing severe burning in the lower chest area. He took many Tums and antacids without much relief. He denied any diaphoresis or syncope. As the pain was relentless he was concerned and came into the ER for further evaluation. During his previous admission with the palpitations he was started on metoprolol 25 mg daily. Mild nausea and he attempted to vomit but was unable to. No hematemesis or melena. Most of the pain is located in the substernal area. Temperature 98.2 pulse 50 respirations 17 blood pressure 165/93 with a pulse oximetry of 98% on room air His chronic medical problems include hyperlipidemia, palpitations on metoprolol, hypothyroidism, gout, coronary artery disease very mild Allergies: Coded Allergies: No Known Allergies (Unverified Allergy, Unknown, 12/04/23) Home Meds Reported Medications Atorvastatin Calcium (LIPITOR) 40 Mg Tablet, 40 MG PO HS, TAB 01/27/24 Allopurinol (Allopurinol) 100 Mg Tablet, 200 MG PO AM, TAB 01/27/24 Past Medical History Past Medical History: CAD, High Cholesterol, Hypertension, Hypothyroid, Other Additional Past Medical Hx: Gout Surgical History: Tonsillectomy, Other Surgical History Other: HERNIA, RT BREAST Family History: Negative Social History: Negative RN Note Reviewed/Agreed w/PFSH: Yes Review of System Dictation Constitutional: Negative for fever,chills, and weight loss Eyes: Negative for injury, pain,redness, and discharge ENT: Negative for injury,pain or swelling Cardiovascular: Positive for lower chest pain, palpitations, and edema Respiratory: Negative for shortness of breath, cough, and wheezing, Abdomen/GI: Positive for epigastric abdominal pain, nausea, denies vomiting, diarrhea, and constipation. Last bowel movement was earlier today Back: Negative for injury and pain : Negative for injury, bleeding and discharge MS/Extremity: Negative for injury and deformity Skin: Negative for rash, and discoloration Neuro: Negative for headache, weakness, numbness, tingling, and seizure Psych: Negative for suicide ideation, homicidal ideation, and hallucinations Initial Vital Sign VS Vital Signs Date Time Temp Pulse Resp B/P (MAP) Pulse Ox O2 Delivery O2 Flow Rate FiO2 05/16/24 19:17 98.2 49 20 168/92 97 Room Air 05/16/24 19:34 0 21 Physical Exam Dictation General: awake, alert, NAD Head/Face: Normocephalic, atraumatic Eyes: PERRL, EOMI, vision at baseline ENT: oral cavity clear, TMs clear, no signs of infection Neck: Trachea midline, supple, no nuchal rigidity Cardiovascular: RRR, normal S1/S2, No MRGs, no JVD Respiratory: CTAB, no respiratory distress, No rales or wheezes Abdomen: Soft, non-tender, non-distended, normal bowel sounds, no guarding or rebound. Skin: Warm, dry, normal turgor, no rash MS/Extremity: Pulses equal, no cyanosis, neurovascular intact, FROM Neuro: COAx4, GCS 15, strength 5/5, CN 2-12 intact, normal cerebellar exam, normal gait, Psych: Normal behavior, mood, and affect normal Extremities-trace edema without any palpable cords, Homans sign is negative Results (Laboratory/Radiology) Laboratory/Radiology Laboratory Tests Test 05/16/24 19:33 05/16/24 20:17 White Blood Count 7.2 K/uL (4.8-10.8) Red Blood Count 5.68 MIL/uL (4.50-6.20) Hemoglobin 15.8 g/dL (14.0-18.0) Hematocrit 49.1 % (42-54) Mean Corpuscular Volume 86.4 fL (79-99) Mean Corpuscular Hemoglobin 27.8 pg (27.0-33.0) Mean Corpuscular Hemoglobin Concent 32.2 g/dL (32.0-36.0) Red Cell Distribution Width 12.3 % (11.0-15.5) Platelet Count 247 K/uL (130-400) Mean Platelet Volume 10.7 fL (7.5-10.5) H Immature Granulocyte % (Auto) 0.3 % (0-1) Neutrophils (%) (Auto) 58.3 % (40.0-77.0) Lymphocytes (%) (Auto) 30.8 % (21.0-51.0) Monocytes (%) (Auto) 8.6 % (3.0-13.0) Eosinophils (%) (Auto) 1.0 % (0.0-8.0) Basophils (%) (Auto) 1.0 % (0.0-5.0) Neutrophils # (Auto) 4.2 K/uL (1.8-7.7) Lymphocytes # (Auto) 2.2 K/uL (1.0-4.8) Monocytes # (Auto) 0.6 K/uL (0.1-1.0) Eosinophils # (Auto) 0.07 K/uL (0.00-0.70) Basophils # (Auto) 0.07 K/uL (0.00-0.20) Absolute Immature Granulocyte (auto 0.02 K/uL (0-1) Nucleated Red Blood Cells 0.0 % (0.0-0.19) Sodium Level 145 mmol/L (136-145) Potassium Level 4.4 mmol/L (3.5-5.1) Chloride Level 106 mmol/L (101-111) Carbon Dioxide Level 32 mmol/L (21-32) Blood Urea Nitrogen 17 mg/dL (7-18) Creatinine 1.5 mg/dL (0.5-1.3) H Glomerular Filtration Rate Calc 55 mL/min (>90) Random Glucose 136 mg/dL (70-105) H Total Calcium 10.2 mg/dL (8.5-10.1) H Total Bilirubin 0.4 mg/dL (0.2-1.0) Direct Bilirubin 0.1 mg/dL (0.0-0.3) Aspartate Amino Transf (AST/SGOT) 23 U/L (10-37) Alanine Aminotransferase (ALT/SGPT) 42 U/L (12-78) Alkaline Phosphatase 70 U/L (50-136) Total Creatine Kinase 148 U/L (21-232) # Troponin I High Sensitivity 5.1 ng/L (4-75) Total Protein 7.7 g/dL (6.0-8.3) Albumin 4.1 g/dL (3.5-5.0) Lipase 42 U/L (16-77) Urine Color LIGHT-YELLOW (YELLOW) Urine Appearance CLEAR (CLEAR) Urine pH 6.0 (5.0-8.0) Urine Specific [place] 1.021 (1.001-1.031) Urine Protein NEGATIVE mg/dL (NEGATIVE) Urine Glucose (UA) NEGATIVE mg/dL (NEGATIVE) Urine Ketones NEGATIVE mg/dL (NEGATIVE) Urine Occult Blood NEGATIVE (NEGATIVE) Urine Nitrate NEGATIVE (NEGATIVE) Urine Bilirubin NEGATIVE mg/dL (NEGATIVE) Urine Urobilinogen 0.2 mg/dL (0.2-1.0) Urine Leukocyte Esterase NEGATIVE Alessio/uL Urine RBC 0-1 /HPF (0-1) Urine WBC None /HPF (0-1) Urine Bacteria None /HPF (None Seen) Labs Reviewed?: Yes ED Course ED Course Orders Procedure Category Date Status Time Chest 1vw RAD 05/16/24 Resulted 19:21 Urinalysis Profile LAB 05/16/24 Complete 19:21 12 Lead Ekg Tracing- EKG 05/16/24 Complete Technical 19:21 Cardiac Panel LAB 05/16/24 Complete 19:21 Lipase LAB 05/16/24 Complete 19:21 Hepatic Function Panel LAB 05/16/24 Complete 19:21 Cbc With Differential LAB 05/16/24 Complete 19:21 Basic Metabolic Panel LAB 05/16/24 Complete 19:21 Ketorolac PHA 05/16/24 Complete Tromethamine 15mg/Ml 20:00 Ondansetron 4mg Inj PHA 05/16/24 Complete (Zofran 4mg Inj) 20:00 Pantoprazole 40mg Inj PHA 05/16/24 Complete (Protonix 40mg Inj 20:00 Current Medications Medications (Trade) Dose Ordered Sig/Daysi Route PRN Reason Start Time Stop Time Status Last Admin Dose Admin Ketorolac Tromethamine (toRADol) 15 mg ONCE ONCE IV 05/16/24 20:00 05/16/24 20:01 DC 05/16/24 20:10 Ondansetron HCl (zoFRAN 4MG INJ) 4 mg ONCE ONCE IVP 05/16/24 20:00 05/16/24 20:01 DC 05/16/24 20:11 Pantoprazole Sodium (PROTonix 40MG INJ) 40 mg ONCE ONCE IVP 05/16/24 20:00 05/16/24 20:01 DC 05/16/24 20:11 Vital Signs Date Time Temp Pulse Resp B/P (MAP) Pulse Ox O2 Delivery O2 Flow Rate FiO2 05/16/24 21:04 100 18 122/86 95 Room Air* 0 21 05/16/24 19:34 98.1 50 17 165/93 98 Room Air* 0 21 05/16/24 19:17 98.2 49 20 168/92 97 Room Air We will perform diagnostic labs, advanced imaging and administer medications according to the patient's complaint. Once the results are available, will review and personally interpreted the labs to rule out any acute life- threatening emergency the trach require immediate intervention and treatment. I will then re-evaluate the patient after treatment and diagnostic exams have return to determine whether the patient requires any further testing, can safely be discharged home or need further admission to hospital for additional t reatment and evaluation. 9:40 p.m. labs reviewed CBC is with a normal limits, urinalysis unremarkable. BNP 7 is significant for a sodium of 145 bicarb 32 BUN and creatinine are 17 and 1.5 with a glucose of 136. Calcium is 10.2 lipase 42. Chest x-ray shows platelike atelectasis in the left lower base. 10:00 p.m. I had a long discussion with the patient and updated him on labs and possibly the current pain may simply be related to esophageal spasm or hiatal hernia, however with multiple risk factors for coronary artery disease, postprandial chest pain maybe an anginal equivalent and recommended further cardiac evaluation and he is agreeable 10:02 p.m. patient accepted by James Triplett, mid-level provider for hospitalist group for admission and further management HEART Score Response (Comments) Value History: Low suspicion (0) 0 EKG: Repolarization changes 1 Age: 45-65yrs (+1) 1 Risk Factors: 1-2 risk factors (+1) 1 Initial Troponin: Normal limit (0) 0 HEART Score Risk: Low Risk for MACE (1-3) Total 3 Medical Decision Making MDM MDM: Differential diagnosis: Unstable angina, esophagitis, hiatal hernia, musculoskeletal Rationale: Tests considered and ordered secondary to shared decision making include: labs, ECG and radiology Previous outside records reviewed: Old ER visits. Risk of complication and/or morbidity or mortality of patient management: None Medications-Per medication reconciliation Need for hospitalization: Patient does meet criteria for hospitalization. Need for emergency major/minor surgery: No There are no social concerns with this patient. Prescription drug management Prescriptions will include symptomatic care Patient's prior external medical records from other ER visits were reviewed by me as indicated. Prior testing and results from previous visits were reviewed. Prior tests were taken into account with medical decision making and resource utilization, independent historian/historians were used to obtain complete medical history. I independently interpreted the test that were performed, results were reviewed by me and considered findings on radiology if ordered. Medical management and examination interpretation discussions were had by me with other qualified healthcare professionals as indicated for the patient's care. Problem List Problem List: (1) Epigastric pain (2) Bradycardia (3) Acute kidney injury (4) Hypernatremia (5) Unstable angina DX & DISP Disposition: Inpatient Decision to Admit Time: 21:59 Departure Impression: Primary Impression: Epigastric pain Additional Impressions: Bradycardia, Substernal chest pain relieved by rest, Hyperlipidemia, Coronary artery disease, Acute kidney injury, Unstable angina Condition: Stable Additional Instructions: Patient was informed of all the diagnostic labs and procedures conducted in the emergency room today and demonstrated understanding of the results. I personally reviewed and interpreted all the diagnostic exams performed in the ER today. The patient will be admitted to the hospital for further treatment and evaluation. Disposition-admit to facility Condition-stable/guarded Course-uncertain at this time Pain status-decreased Assessment-exam unchanged Admission Certification- I certify that the patients status is appropriate and is based on my best clinical judgment and the patient's condition as documented in the medical records Referrals: SELF,REFERRAL (PCP) GIUSEPPE DWYER MD May 16, 2024 19:33
--- NOTE | 2024-05-16 19:34 | NUR ---
PT CARE ASSUMED AT THIS TIME
--- NOTE | 2024-05-16 19:39 | NUR ---
PT PROVIDED WITH URINAL TO COLLECT URINE AT THIS TIME
[2024-05-16 19:41] LABS: BASOPHILS # (AUTO) 0.07 K/uL (0.00-0.20); EOSINOPHILS # (AUTO) 0.07 K/uL (0.00-0.70); HEMATOCRIT 49.1 % (42-54); IMMATURE GRANULOCYTE ABSOLUTE 0.02 K/uL (0-1); LYMPHOCYTES # (AUTO) 2.2 K/uL (1.0-4.8); LYMPHOCYTES % (AUTO) 30.8 % (21.0-51.0); MEAN CORPUSCULAR HEMOGLOBIN 27.8 pg (27.0-33.0); MEAN CORPUSCULAR HGB CONC 32.2 g/dL (32.0-36.0); MEAN CORPUSCULAR VOLUME 86.4 fL (79-99); MONOCYTES # (AUTO) 0.6 K/uL (0.1-1.0); MONOCYTES % (AUTO) 8.6 % (3.0-13.0); NEUTROPHILS # (AUTO) 4.2 K/uL (1.8-7.7); NEUTROPHILS % (AUTO) 58.3 % (40.0-77.0); PLATELET COUNT (AUTO) 247 K/uL (130-400); RED BLOOD CELL COUNT(AUTO) 5.68 MIL/uL (4.50-6.20); RED CELL DISTRIBUTION WIDTH 12.3 % (11.0-15.5); WHITE BLOOD COUNT (AUTO) 7.2 K/uL (4.8-10.8)
[2024-05-16] MEDS: ketOROlac 15MG/ML VIAL (15MG/ML) IV ONE (20:10)
[2024-05-16] MEDS: PANTOPrazole 40 MG/VIAL IVP ONE (20:11)
[2024-05-16] MEDS: ondanSETRON 4MG INJ IVP ONE (20:11)
[2024-05-16 20:26] LABS: APPEARANCE,URINE CLEAR (CLEAR); BILIRUBIN,URINE NEGATIVE (NEGATIVE); COLOR,URINE LIGHT-YELLOW (YELLOW); GLUCOSE, URINE (UA) NEGATIVE (NEGATIVE); KETONES,URINE NEGATIVE (NEGATIVE); LEUKOCYTE ESTERASE ,URINE NEGATIVE Leu/uL (NEGATIVE); NITRATE,URINE NEGATIVE (NEGATIVE); OCCULT BLOOD,URINE NEGATIVE (NEGATIVE); PROTEIN,URINE NEGATIVE (NEGATIVE); UROBILINOGEN,URINE 0.2 mg/dL (0.2-1.0)
[2024-05-16 20:27] LABS: ADD UA MICROSCOPIC YES
[2024-05-16 20:28] LABS: RBC,URINE 0-1 /HPF (0-1)
[2024-05-16 20:36] LABS: CREATININE 1.5 mg/dL (0.5-1.3); POTASSIUM 4.4 mmol/L (3.5-5.1)
--- NOTE | 2024-05-16 20:39 | HMCIMG ---
CHEST 1VW CLINICAL HISTORY: EPIGASTRIC PAIN COMPARISON: None TECHNIQUE: Single view of the chest was obtained. FINDINGS: There is mild linear atelectasis in the left lung base or scarring. The cardiac size and mediastinum are unremarkable. The bony structures are within normal limits. IMPRESSION: Mild linear atelectasis in left lung base or scarring.
[2024-05-16 20:42] LABS: ALBUMIN 4.1 g/dL (3.5-5.0); BILIRUBIN,DIRECT 0.1 mg/dL (0.0-0.3); BILIRUBIN,TOTAL 0.4 mg/dL (0.2-1.0); TOTAL PROTEIN, SERUM 7.7 g/dL (6.0-8.3)
--- NOTE | 2024-05-16 22:01 | HP ---
History of Present Illness Reason for Visit: chest pain History of Present Illness Mr. Monson is a 53-year-old male that was seen and examined today on 05/16/24. Patient is a good historian of personal health Patient states that he came to the emergency department with a chief complaint of chest pain. Onset was today at 3:00 p.m.. Location is epigastric. Duration is on and off. Character is described as burning. Patient reports one episode that lasted 3 hours. There was no alleviating factors. There was no aggravating factors. Patient took Tums but this did not help. Patient denies any associated shortness of breath or dizziness. Today in the emergency department CBC unremarkable, chemistry unremarkable, urinalysis unremarkable chest x-ray shows Mild linear atelectasis in left lung base or scarring. Emergency room physician recommended that patient be admitted with a diagnosis of chest pain. Past Medical History ADDITIONAL PAST MEDICAL HISTORY: [Hyperlipidemia] SOCIAL HISTORY: [Negative for smoking, alcohol use, drug use. Patient lives alone. Patient denies difficulty pain is bills. Patient is employed full-time in information technology. Patient is typically independent of all his ADLs. Patient has good access to health care through his insurance.] SURGICAL HISTORY: [Hernia repair, tonsillectomy, right chest cyst excision Review of Systems General: No Fever, No Chills, No Night Sweats, No Fatigue, No Malaise, No Appetite, No Other HEENT: No Head Aches, No Visual Changes, No Eye Pain, No Ear Pain, No Dysphasia, No Sinus Congestion, No Post Nasal Drip, No Sore Throat, No Other Pulmonary: No Dyspnea, No Cough, No Pleuritic Chest Pain, No Other Cardiovascular: Chest Pain; No: Palpitations, Orthopnea, Paroxysmal Noc. Dyspnea, Edema, Lt Headedness, Other Gastrointestinal: No: Nausea, Vomiting, Abdominal Pain, Diarrhea, Constipation, Melena, Hematochezia, Other Genitourinary: No Dysuria, No Frequency, No Incontinence, No Hematuria, No Retention, No Other Musculoskeletal: No: other, neck pain, shoulder pain, arm pain, back pain, hand pain, leg pain, foot pain Skin: No Urticaria, No Rash, No Other Neurological: No: Weakness, Numbness, Incoordination, Change in speech, Confusion, Seizures, Other Allergies: Coded Allergies: No Known Allergies (Unverified Allergy, Unknown, 12/04/23) Scheduled Allopurinol (Allopurinol), 200 MG PO AM, (Reported) Atorvastatin Calcium (Lipitor), 40 MG PO HS, (Reported) Exam Vital Signs Vital Signs Date Time Temp Pulse Resp B/P (MAP) Pulse Ox O2 Delivery O2 Flow Rate FiO2 05/16/24 21:04 100 18 122/86 95 Room Air* 0 21 05/16/24 19:34 98.1 General Appearance: Alert, Oriented X3, Cooperative, No acute distress HEENT: Atraumatic, EOMI Respiratory: Clear to auscultation, Normal air movement, NL respiratory effort Cardiovascular: Regular rate, Regular rhythm, Normal S1, Normal S2 Abdominal: Normal bowel sounds, Soft, No tenderness Extremities: No edema Skin: No significant lesion Neuro: Normal gait, Normal speech, Strength at 5/5 X4 ext, Sensation intact, Cranial nerves 3-12 NL Psych/Mental Status: Mental status NL, Mood NL, Thoughts/Content NL Assessment/Plan ASSESSMENT: [ Chest pain, POA HyperLipidemia CKD stage IIIA, POA PLAN: [ Admit patient to medical floor as inpatient status. Place patient on telemetry monitoring. Chest pain: Administer aspirin 162 mg by mouth times 1 dose Continue aspirin 81 mg by mouth once daily Nitropaste 0.5 inches anterior chest wall every 8 hours Trend troponin every 6 hours x 3 sets Supplemental oxygen to maintain O2 saturation greater than 92% Consult cardiology if any elevation in troponin or troponin uptrending CKD stage IIIA: Monitor intake and output every shift. Weight patient daily. Avoid nephrotoxic agents when possible. Renally dose all medications when possible. Hyperlipidemia: Consider resuming home medications once they have been reconciled. Check lipid panel in a.m. GI prophylaxis, Protonix DVT prophylaxis, heparin ADVANCED CARE PLANNING 1. Which of the following were discussed? Hospice Care - Yes Therapeutic options - Yes Advance Directives - Yes -patient states he does not have any advance directives in place at this time, however his sister alex edwards can make decisions for him if he becomes unable. Other discussions - patient wishes to remain a full code at this time 2. Discussed with who? Patient 3. Voluntary nature of this service was explained to the patient? Yes 4. Amount of time spent - __ 16 minutes ____ 5. Reviewed by Physician? (if this service was performed by NPP) Yes This document was generated in part using voice recognition software, occasional wrong word or sound alike substitutions may have occurred due to the inherent limitations of voice recognition software. Read the chart carefully and recognize using context, where the substitutions have occurred. Although every effort was made to edit the content, civil manager and typing errors may occur ATTESTATION BY PHYSICIAN I have seen and examined the patient. I reviewed the documentation, medical decision making, and treatment plan as noted by the mid-level provider above. I agree with the findings and plan of care. ANCELMO MOLINA [facility] May 16, 2024 22:01
[2024-05-16 22:25] VITALS: BP 130/75; PULSE 72; RESP 18; TEMP 98.4
[2024-05-16] MEDS ORDERED: NITROGLYCERIN 0.4 MG SL TAB SL PRN (22:30)
[2024-05-16] MEDS: ASPIRIN 81MG CHEW TAB PO ONE (22:37)
[2024-05-16] MEDS: 0.9%NACL 1000ML 1,000 ML IV ONE (22:37)
--- NOTE | 2024-05-16 23:11 | NUR ---
REPORT GIVEN TO ROGER NOBLES AT THIS TIME
[2024-05-17] VITALS: BP 129/76; PULSE 71; RESP 18; TEMP 98.6
[2024-05-17] MEDS ORDERED: NITROGLYCERIN 0.4 MG SL TAB SL PRN (00:30)
[2024-05-17] MEDS ORDERED: morPHINE 2 MG SYG IVP PRN (00:30)
[2024-05-17] MEDS ORDERED: acetaMINOPHEN 325 MG TAB PO PRN (00:30)
[2024-05-17] MEDS ORDERED: ondanSETRON 4MG INJ IV PRN (00:30)
[2024-05-17 03:59] LABS: BASOPHILS # (AUTO) 0.07 K/uL (0.00-0.20); BASOPHILS % (AUTO) 0.9 % (0.0-5.0); EOSINOPHILS # (AUTO) 0.07 K/uL (0.00-0.70); EOSINOPHILS % (AUTO) 0.9 % (0.0-8.0); HEMATOCRIT 45.5 % (42-54); IMMATURE GRANULOCYTE ABSOLUTE 0.02 K/uL (0-1); LYMPHOCYTES # (AUTO) 2.4 K/uL (1.0-4.8); LYMPHOCYTES % (AUTO) 30.1 % (21.0-51.0); MEAN CORPUSCULAR HEMOGLOBIN 28.5 pg (27.0-33.0); MEAN CORPUSCULAR HGB CONC 32.7 g/dL (32.0-36.0); MONOCYTES # (AUTO) 0.8 K/uL (0.1-1.0); MONOCYTES % (AUTO) 9.6 % (3.0-13.0); NEUTROPHILS # (AUTO) 4.6 K/uL (1.8-7.7); NEUTROPHILS % (AUTO) 58.2 % (40.0-77.0); PLATELET COUNT (AUTO) 202 K/uL (130-400); RED BLOOD CELL COUNT(AUTO) 5.23 MIL/uL (4.50-6.20); RED CELL DISTRIBUTION WIDTH 12.2 % (11.0-15.5); WHITE BLOOD COUNT (AUTO) 7.9 K/uL (4.8-10.8)
[2024-05-17 04:00] VITALS: BP 135/72; PULSE 65; RESP 18; TEMP 98.6
[2024-05-17 04:16] LABS: CREATININE 1.2 mg/dL (0.5-1.3); MAGNESIUM 1.9 mg/dL (1.80-2.40); PHOSPHORUS 4.4 mg/dL (2.5-4.9); POTASSIUM 4.4 mmol/L (3.5-5.1)
[2024-05-17 07:46] VITALS: BP 140/86; PULSE 50; RESP 16; TEMP 98.3
[2024-05-17] MEDS: PANTOPrazole 40 MG TAB DR PO SCH (08:31)
[2024-05-17] MEDS: HEParin 5,000 UNIT VIAL SQ SCH (08:52)
[2024-05-17 09:19] VITALS: O2SAT 100
[2024-05-17 10:55] VITALS: BP 118/72; PULSE 58; RESP 20; TEMP 98.3
[2024-05-17] MEDS ORDERED: PANT20TA18 PO (16:03)
--- NOTE | 2024-05-17 16:15 | DS ---
Discharge Summary Hospital Course Summary: Mr. Steward is a 53-year-old male that was seen and examined today on 05/16/24. Patient is a good historian of personal health Patient states that he came to the emergency department with a chief complaint of epigastric pain/chestpain Onset was today at 3:00 p.m.. Location is epigastric. Duration is on and off. Character is described as burning. Patient reports one episode that lasted 3 hours. There was no alleviating factors. There was no aggravating factors. Patient took Tums but this did not help. Patient denies any associated shortness of breath or dizziness. Today in the emergency department CBC unremarkable, chemistry unremarkable, urinalysis unremarkable chest x-ray shows Mild linear atelectasis in left lung base or scarring. Emergency room physician recommended that patient be admitted with a diagnosis of chest pain. 05/17-patient was seen and examined at the bedside. Vitals stable. Chest x-ray shows mild atelectasis in the left lower base. Cardiology workup done negative. He says he had a cardiology follow up outpatient and was done for workup with stress testing,negative No severe complaints noted. He has eating drinking well. He says after the pantoprazole his symptoms have subsided, prescribed him pantoprazole 20 mg once daily for 30 days. Advised him to follow with the PCP for referral for manager in home for possible endoscopy, also advised him to follow with the Cardiology. Patient seems to be in a stable position to be discharged. Procedure(s): PATIENT: GRISELDA STEWARD MR#: [id number] : 1970 SEX: M AGE: 53 LOCATION: [facility] ORDER 21 STATUS: REG REPORT#: [id number] SERVICE 20 REASON: EPIGASTRIC PAIN ORDERING PHYSICIAN: GIUSEPPE DWYER MD PROCEDURE: CXR1VW - CHEST 1VW CHEST 1VW CLINICAL HISTORY: EPIGASTRIC PAIN COMPARISON: None TECHNIQUE: Single view of the chest was obtained. FINDINGS: There is mild linear atelectasis in the left lung base or scarring. The cardiac size and mediastinum are unremarkable. The bony structures are within normal limits. IMPRESSION: Mild linear atelectasis in left lung base or scarring. DICTATED BY: KATLYN CHILD DO DATE: 05/16/242022 ELECTRONICALLY SIGNED BY: KATLYN CHILD DO DATE: 05/16/242038 PATIENT: GRISELDA SETWARD MR#: [id number] : 1970 SEX: M AGE: 53 LOCATION: [facility] ROOM/BED: [facility] ORDER 21 REPORT#: [id number] REASON: ORDERING PHYSICIAN: GIUSEPPE DWYER MD PROCEDURE: EKG - 12 LEAD EKG TRACING- TECHNICAL [facility] Test Date: 2024-05-16 Test Time: 19:30:21 Pat Name: GRISELDA STEWARD Department: [facility] Room: [facility] Gender: M Homebirth Midwife: [id number] : 1970 Requested By: GIUSEPPE DWYER Order Number: [id number] Reading MD: Bailey Mares Measurements Intervals [place] Rate: 47 P: 23 AK: 161 QRS: -21 QRSD: 120 T: 5 QT: 472 QTc: 397 Interpretive Statements Sinus bradycardia Atrial premature complexes in couplets Nonspecific intraventricular conduction delay Compared to ECG 01/27/2024 01:22:38 Atrial premature complex(es) now present Intraventricular conduction delay now present Sinus rhythm no longer present Left-axis deviation no longer present Electronically Signed On 05-17-2024 12:27:10 CDT by Bailey Mares Please click the below link to view image of tracing. Assessment/Plan: ASSESSMENT: Chest pain, POA HyperLipidemia CKD stage IIIA, POA PLAN: ADMISSION DATE: 05/16/2024 DISCHARGE DATE: 05/17/2024 DISPOSITION: Home CONDITION: Stable REGIONAL INTERMODAL TRUCK DRIVER(S): None FOLLOW UP APPOINTMENT(S): Patient to follow with the PCP in 2-5 days and cover making machine operator in 2-5 days. PROCEDURES: none IMAGING (S) report attached to summary : EKG, Chest x-ray MICROBIOLOGY: Attached above ACTIVITY: ab fredy HOME MEDICATIONS : Continued NEW MEDICATIONS- pantoprazole 20 mg per orally for 30 days TEACHING: We reinforced the importance of compliance,with follow-up appointment and medication compliance. Advised patient to follow-up with PCP and cover making machine operator Emergency instructions: The patient was instructed to present to the nearest Emergency Department or call 911 should their symptoms return or worsen. Home Medications: Reported Medications Atorvastatin Calcium (LIPITOR) 40 Mg Tablet, 40 MG PO HS, TAB 01/27/24 Allopurinol (Allopurinol) 100 Mg Tablet, 200 MG PO AM, TAB 01/27/24 Time spent arranging discharge: 1-30 minutes ATTESTATION BY PHYSICIAN I have seen and examined the patient. I reviewed the documentation, medical decision making, and treatment plan as noted by the mid-level provider above. I agree with the findings and plan of care. venkatesh Mcnamara MD, AISHWARYA MD May 17, 2024 16:15
--- NOTE | 2024-05-17 16:20 | NUR ---
DCP -- Home Patient states he lives alone in a rental house with two step enterance and a tub. 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 States able to complete ADL's on his own. States he has a regular walker but does not use it. [facility] home health services, home care provider or dialysis. PCP [facility] Upon discharge, states he will be able to drive himself home or Lift or Uber. At this time, is unaware of additional medical needs. Addendum: 05/17/24 at 1624 by ROGER GELLER RN CM Amended: Links added.
[2024-05-17 16:30] VITALS: BP 124/76; PULSE 60; RESP 18; TEMP 98.1
--- NOTE | 2024-05-17 17:00 | NUR ---
DISCHARGE PT sitting in chair w/ eyes open 0s/s of distress noted, A&Ox4, denies pain or discomfort. Discharge instruction given to PT verbally acknowledged understanding w/ 0 questions or concerns. I.V. DC'd intact w/o complications. PT escorted to POV via Wheelchair by SALES ENABLEMENT CONSULTANT.
== END 2024-05-17 17:00 | disposition home or self-care (01) ==
LOC: EDH 19:15 → INTOOBSV 22:00 → EDHIP 22:00 → 4BH 23:25
PROVIDERS: ADMIT Internal Medicine; ATTEND Internal Medicine
DX: R07.89 Other chest pain (principal); E78.5 Hyperlipidemia, unspecified; I12.9 Hypertensive chronic kidney disease with stage 1 through stage 4 chronic kidney disease, or unspecified chronic kidney disease; N18.31 Chronic kidney disease, stage 3a; J98.11 Atelectasis; N17.9 Acute kidney failure, unspecified; R10.13 Epigastric pain; I25.110 Atherosclerotic heart disease of native coronary artery with unstable angina pectoris; E03.9 Hypothyroidism, unspecified; M10.9 Gout, unspecified; E87.0 Hyperosmolality and hypernatremia; Z79.82 Long term (current) use of aspirin; Z79.899 Other long term (current) drug therapy
CPT/HCPCS: 96361 ×2; 99285; 82550; 80076; 84484 ×5; 80048 ×2; 83690; 85025 ×2; 81001; 36415 ×2; 71045; 96374; 96375; 93005; 96372; 83735; 84100; 80061; J7030; J2405; J2470; J1885; G0378 ×5; J1644